=== PATIENT | male | born 1935 | race Caucasian/White ===

== ENCOUNTER 2017-09-29 07:42 | Emergency (ER) | payer MEDICARE, OTHER ==
[~2017-09-29] VITALS: Ht 180.3 cm; Wt 85.3 kg
[~2017-09-29 07:42] MED LIST: WARF1TAB2 PO
[2017-09-29 08:32] LABS: BASOPHILS % (AUTO) 0.6 % (0.0-2.0); EOSINOPHILS # (AUTO) 0.4 K/uL (0.0-0.7); EOSINOPHILS % (AUTO) 4.2 % (0.0-7.0); HEMOGLOBIN 11.3 g/dL (12.5-16.3); LYMPHOCYTES # (AUTO) 1.2 K/uL (20.0-40.0); LYMPHOCYTES % (AUTO) 13.1 % (20.5-51.5); MEAN CORPUSCULAR HEMOGLOBIN 33.3 uug (23.8-33.4); MEAN CORPUSCULAR HGB CONC 33 g/dL (32.5-36.3); MEAN CORPUSCULAR VOLUME 100.3 fL (73.0-96.2); MONOCYTES # (AUTO) 0.7 K/uL (2.0-10.0); MONOCYTES % (AUTO) 7.6 % (0.0-11.0); NEUTROPHILS # (AUTO) 6.6 K/uL (1.8-8.9); NEUTROPHILS % (AUTO) 74.5 % (38.5-71.5); PLATELET COUNT (AUTO) 211 K/uL (152-348); RED BLOOD CELL COUNT(AUTO) 3.39 MIL/uL (4.06-5.63); WHITE BLOOD COUNT (AUTO) 8.8 K/uL (3.6-10.2)
--- NOTE | 2017-09-29 08:40 | NUR ---
LEFT KNEE SKIN TEAR DRESSED WITH ADAPTIC NON ADHESSIVE FOLLOWED BY [employer] AND KERLIX.
[2017-09-29 08:50] VITALS: BP 103/89
--- NOTE | 2017-09-29 08:50 | NUR ---
Patient discharged to home in stable conditon. Written and verbal after care instructions given. Patient verbalizes understanding of instructions.PT WALKS WITH STEADY GAIT ACCOMPANIED BY .
== END 2017-09-29 08:52 | disposition home or self-care (01) ==
LOC: ER 07:42
DX: S80.212A Abrasion, left knee, initial encounter (principal); I10 Essential (primary) hypertension; I48.91 Unspecified atrial fibrillation; Z79.01 Long term (current) use of anticoagulants; W18.09XA Striking against other object with subsequent fall, initial encounter; Y93.01 Activity, walking, marching and hiking; Y92.89 Other specified places as the place of occurrence of the external cause; Y99.8 Other external cause status
CPT/HCPCS: 36415; 85025; 85730; 99284; A4663

== ENCOUNTER 2017-10-02 09:08 | Emergency (ER) | payer MEDICARE ==
[~2017-10-02] VITALS: Ht 180.3 cm; Wt 85.3 kg
--- NOTE | 2017-10-02 09:40 | NUR ---
Patient discharged to home in stable conditon. Written and verbal after care instructions given. Patient verbalizes understanding of instructions.PT WALKS IN STEADY GAIT. PT WITH .
[2017-10-02 09:41] VITALS: BP 109/71
== END 2017-10-02 09:45 | disposition home or self-care (01) ==
LOC: ER 09:08
DX: S81.012D Laceration without foreign body, left knee, subsequent encounter (principal); I10 Essential (primary) hypertension; I48.91 Unspecified atrial fibrillation; Z79.01 Long term (current) use of anticoagulants; X58.XXXD Exposure to other specified factors, subsequent encounter
CPT/HCPCS: A4663

== ENCOUNTER 2023-01-25 21:51 | Inpatient (IN) | payer MEDICARE ==
[~2023-01-25] VITALS: Ht 182.9 cm; Wt 77.1 kg
[2023-01-25] MEDS ORDERED: METO25TA6 PO (22:14)
[2023-01-25] MEDS ORDERED: FURO40TA5 PO (22:14)
[2023-01-25] MEDS ORDERED: DOCU100C36 PO (22:14)
[2023-01-25] MEDS ORDERED: MELA3CAP2 PO (22:14)
[2023-01-25] MEDS ORDERED: SEVE800T8 PO (22:14)
[2023-01-25] MEDS ORDERED: CHOL500062 PO (22:14)
[2023-01-25] MEDS ORDERED: ATOR40TA PO (22:14)
[2023-01-25] MEDS ORDERED: MEGE400O5 PO (22:14)
[2023-01-25] MEDS ORDERED: DILT180T11 PO (22:14)
[2023-01-25] MEDS ORDERED: LEVO75TA PO (22:14)
[2023-01-25] MEDS ORDERED: FERR-56 PO (22:14)
[2023-01-25] MEDS ORDERED: SODI15OR6 PO (22:14)
[2023-01-25] MEDS ORDERED: FOLI0.8T2 PO (22:14)
[2023-01-25] MEDS ORDERED: TRAZ-182 PO (22:14)
[2023-01-25] MEDS ORDERED: DIGO125T PO (22:14)
[2023-01-25] MEDS ORDERED: DIPH50LI PO (22:14)
[2023-01-25] MEDS ORDERED: ASCO500C18 PO (22:14)
[2023-01-25] MEDS ORDERED: APIX2.5T PO (22:14)
[2023-01-25] MEDS ORDERED: FOLI1TAB94 PO (22:14)
[2023-01-25 22:21] LABS: HEMATOCRIT 23.9 % (36.7-47.1); MEAN CORPUSCULAR HEMOGLOBIN 33.4 uug (23.8-33.4); MEAN CORPUSCULAR VOLUME 100.9 fL (73.0-96.2); PLATELET COUNT (AUTO) 286 K/uL (152-348)
[2023-01-25 22:27] LABS: CARBON DIOXIDE 25 mmol/L (21-32); CHLORIDE 106 mmol/L (98-107); CREATININE 3.6 mg/dL (0.6-1.3); GLUCOSE 129 mg/dL (74-106)
[2023-01-25 22:29] LABS: UREA NITROGEN, BLOOD 83 mg/dL (7-18)
[2023-01-25 22:39] LABS: ALANINE AMINOTRANSFERASE 40 U/L (16-63); ALKALINE PHOSPHATASE 207 U/L (50-136); ASPARTATE AMINOTRANSFERASE 16 U/L (15-37); BILIRUBIN,DIRECT 0.2 mg/dL (0.0-0.2); BILIRUBIN,TOTAL 0.4 mg/dL (0.2-1.0); TOTAL PROTEIN, SERUM 7.1 g/dL (6.4-8.2)
[2023-01-25] MEDS ORDERED: METOPROLOL TARTRATE 5 MG/5 ML VIAL IVP ONE ×2 (22:45→23:20)
[2023-01-25 23:05] LABS: *BILIRUBIN,URIN NEGATIVE (NEGATIVE); *BLOOD, URINE 3+ (NEGATIVE); *CLARITY,URINE CLEAR (CLEAR); *COLOR,URINE YELLOW (YELLOW); *KETONES,URINE NEGATIVE (NEGATIVE); *UROBILINOGEN,URINE 0.2 E.U./dl (NORMAL); LEUKOCYTE ESTERASE ,URINE NEGATIVE (NEGATIVE); NITRITE, URINE NEGATIVE (NEGATIVE); PH,URINE 5.5 (5.0-8.0); UGLUCOSE NEGATIVE (NEGATIVE)
[2023-01-25] MEDS ORDERED: FUROSEMIDE 20 MG/2 ML VIAL IV ONE (23:45)
--- NOTE | 2023-01-25 23:45 | NUR ---
Caregiver at bedside. Patient is awake and in bed.
--- NOTE | 2023-01-26 00:07 | NUR ---
Called [facility] for panel call. Ronal Doran director of acquisitions.
[2023-01-26] MEDS ORDERED: HYDROCODONE/APAP 5-325MG TABLET PO PRN (00:30)
[2023-01-26] MEDS ORDERED: HOME MED MISCELLANEOUS XX SCH (00:30)
[2023-01-26] MEDS ORDERED: ONDANSETRON 4 MG/2 ML VIAL IV PRN (00:30)
[2023-01-26] MEDS ORDERED: REMEDY ESSENTIAL ZINC PASTE 113 GM TP PRN (00:30)
[2023-01-26] MEDS ORDERED: DILTIAZEM HCL CD 180 MG CAP.SR.24H PO ONE (00:30)
[2023-01-26] MEDS ORDERED: ACETAMINOPHEN 325 MG TABLET PO PRN (00:30)
[2023-01-26] MEDS ORDERED: MAGNESIUM HYDROXIDE 30 ML LIQUID UDC PO PRN (00:30)
[2023-01-26] MEDS ORDERED: MELATONIN 3 MG TABLET ONE (00:35)
[2023-01-26] MEDS: MELATONIN 3 MG TABLET PO SCH (00:46)
--- NOTE | 2023-01-26 01:00 | NUR ---
Called third floor and spoke to Lakesha Villagomez and gave report.
[2023-01-26 01:18] LABS: RBC,URINE 20-50 /HPF (0-3)
[2023-01-26 01:19] LABS: BACTERIA,URINE FEW /HPF (NONE SEEN); MUCUS,URINE FEW /LPF (0-FEW); SQUAMOUS EPITHELIAL CELL,UR NONE SEEN /HPF (NONE SEEN); WBC,URINE 0-3 /HPF (0-3)
--- NOTE | 2023-01-26 01:35 | NUR ---
Transferred patient to third floor. Lakesha ALLEN made aware of patient's arrival.
[2023-01-26 02:11] VITALS: BP 152/85
[2023-01-26] MEDS: MORPHINE SULFATE 2 MG/1 ML DISP.SYRIN IV PRN (02:22)
[2023-01-26 04:15] VITALS: BP 106/57
[2023-01-26] MEDS: PANTOPRAZOLE SODIUM 40 MG TABLET.DR PO SCH (06:24)
[2023-01-26] MEDS: LEVOTHYROXINE SODIUM 75 MCG TABLET PO SCH (06:24)
--- NOTE | 2023-01-26 07:30 | NUR ---
REPORT GIVEN TO ALEJANDRO STALLINGS
--- NOTE | 2023-01-26 07:30 | NUR ---
Received report from Lakesha Mendoza RN. Patient is awake and alert of disoriented. Patient is not listening to instructions not to pull on his IV and his phototypesetting equipment monitor or to stay in bed so he doesn't fall.
[2023-01-26 08:00] VITALS: BP 113/59
[2023-01-26] MEDS: SEVELAMER CARBONATE 800 MG TABLET PO SCH ×3 (08:55→17:31)
[2023-01-26] MEDS: FOLIC ACID 1 MG TABLET PO SCH (08:55)
[2023-01-26] MEDS: DOCUSATE SODIUM 100 MG CAPSULE PO SCH ×2 (08:56→17:29)
[2023-01-26] MEDS: FOLIC ACID/VITAMIN B COMP W-C TABLET PO SCH (08:57)
[2023-01-26] MEDS: APIXABAN 2.5 MG TABLET PO SCH ×2 (08:57→17:32)
[2023-01-26] MEDS: CHOLECALCIFEROL 1,000 UNIT TABLET PO SCH (08:57)
[2023-01-26] MEDS ORDERED: METOPROLOL TARTRATE 25 MG TABLET PO SCH (09:00)
[2023-01-26] MEDS ORDERED: DIGOXIN 125 MCG TABLET PO SCH ×2 (09:00→13:43)
[2023-01-26] MEDS: ASCORBIC ACID 500 MG TABLET PO SCH (09:17)
--- NOTE | 2023-01-26 09:30 | NUR ---
Dr Weinstein informed about pt being agitated and noncompliant and orders received.
[2023-01-26] MEDS: ALPRAZOLAM 0.5 MG TABLET PO SCH ×3 (10:26→21:04)
[2023-01-26 11:58] VITALS: BP 109/43
[2023-01-26 12:51] LABS: HEMATOCRIT 22.6 % (36.7-47.1); MEAN CORPUSCULAR HEMOGLOBIN 33.5 uug (23.8-33.4); MEAN CORPUSCULAR VOLUME 100.3 fL (73.0-96.2); PLATELET COUNT (AUTO) 253 K/uL (152-348)
[2023-01-26 13:04] LABS: CARBON DIOXIDE 27 mmol/L (21-32); CHLORIDE 106 mmol/L (98-107); CREATININE 3.5 mg/dL (0.6-1.3); GLUCOSE 99 mg/dL (74-106); UREA NITROGEN, BLOOD 73 mg/dL (7-18)
[2023-01-26 13:07] LABS: IRON, SERUM 95 ug/dL (50-175)
[2023-01-26 13:10] LABS: ALANINE AMINOTRANSFERASE 35 U/L (16-63); ALKALINE PHOSPHATASE 176 U/L (50-136); ASPARTATE AMINOTRANSFERASE 18 U/L (15-37); BILIRUBIN,TOTAL 0.5 mg/dL (0.2-1.0); MAGNESIUM 1.8 mg/dL (1.8-2.4); PHOSPHOROUS 3.9 mg/dL (2.5-4.9); TOTAL PROTEIN, SERUM 6.2 g/dL (6.4-8.2)
[2023-01-26 13:17] LABS: THYROID STIMULATING HORMONE 2.694 mIU/mL (0.358-3.740)
[2023-01-26 16:00] VITALS: BP 120/63
[2023-01-26] MEDS: TRAZODONE 50 MG TABLET PO SCH (17:29)
[2023-01-26 19:51] VITALS: BP 115/50
[2023-01-26] MEDS ORDERED: ATORVASTATIN 40 MG TABLET PO SCH (21:00)
[2023-01-26] MEDS: METOPROLOL TARTRATE 25 MG TABLET PO SCH (21:05)
[2023-01-27 04:11] VITALS: BP 112/59
[2023-01-27] MEDS: ALPRAZOLAM 0.5 MG TABLET PO SCH ×3 (06:11→21:53)
[2023-01-27] MEDS: PANTOPRAZOLE SODIUM 40 MG TABLET.DR PO SCH (06:11)
[2023-01-27] MEDS: LEVOTHYROXINE SODIUM 75 MCG TABLET PO SCH (06:11)
--- NOTE | 2023-01-27 07:30 | NUR ---
REPORT GIVEN TO ALEJANDRO HOMER
[2023-01-27 07:43] LABS: HEMATOCRIT 23.7 % (36.7-47.1); MEAN CORPUSCULAR VOLUME 101.1 fL (73.0-96.2); PLATELET COUNT (AUTO) 263 K/uL (152-348)
--- NOTE | 2023-01-27 08:00 | NUR ---
Pt awake alert x 2. Pt is in no acute distress. Caregiver at bedside. Noted bruising on left knee. Call light is within reach. Tele hr 120's afib - Dr mcmullen cardiology on board awaiting for further orders.
[2023-01-27 08:01] LABS: ALANINE AMINOTRANSFERASE 36 U/L (16-63); ALKALINE PHOSPHATASE 172 U/L (50-136); ASPARTATE AMINOTRANSFERASE 21 U/L (15-37); BILIRUBIN,TOTAL 0.5 mg/dL (0.2-1.0); CARBON DIOXIDE 27 mmol/L (21-32); CHLORIDE 108 mmol/L (98-107); CHOLESTEROL 78 mg/dL (<200); GLUCOSE 101 mg/dL (74-106); HDL CHOLESTEROL 48 mg/dL (40-60); MAGNESIUM 1.8 mg/dL (1.8-2.4); PHOSPHOROUS 3.7 mg/dL (2.5-4.9); POTASSIUM 5.3 mmol/L (3.5-5.1); TOTAL PROTEIN, SERUM 6.3 g/dL (6.4-8.2); TRIGLYCERIDES < 15 MG/DL (30-150); UREA NITROGEN, BLOOD 68 mg/dL (7-18)
[2023-01-27] MEDS: FOLIC ACID 1 MG TABLET PO SCH (08:40)
[2023-01-27] MEDS: ASCORBIC ACID 500 MG TABLET PO SCH (08:40)
[2023-01-27] MEDS: DOCUSATE SODIUM 100 MG CAPSULE PO SCH ×2 (08:40→17:13)
[2023-01-27] MEDS: APIXABAN 2.5 MG TABLET PO SCH ×2 (08:40→17:15)
[2023-01-27] MEDS: CHOLECALCIFEROL 1,000 UNIT TABLET PO SCH (08:41)
[2023-01-27] MEDS: FOLIC ACID/VITAMIN B COMP W-C TABLET PO SCH (08:41)
[2023-01-27] MEDS: SEVELAMER CARBONATE 800 MG TABLET PO SCH ×3 (08:41→17:13)
[2023-01-27] MEDS: MEGESTROL ACETATE 400 MG/10 ML LIQUID UDC PO SCH (08:43)
[2023-01-27] MEDS: METOPROLOL TARTRATE 25 MG TABLET PO SCH ×2 (08:48→20:36)
[2023-01-27] MEDS ORDERED: SODIUM POLYSTYRENE SULFONATE 15 G/60 ML LIQUID UDC PO ONE (10:30)
[2023-01-27] MEDS: DILTIAZEM HCL CD 180 MG CAP.SR.24H PO SCH (10:45)
[2023-01-27] MEDS: IV NS 1000 ML 1,000 ML IV PRN ×2 (11:00→18:28)
[2023-01-27 12:00] VITALS: BP 124/64
[2023-01-27] MEDS: HALOPERIDOL LACTATE 5 MG/1 ML VIAL IM PRN (15:35)
--- NOTE | 2023-01-27 15:35 | NUR ---
Prior intervention to deescalate pt non effective. Distraction, offer urinal, Pt continues to kick, punch, pull out o2. Notified dr paul new order given for haldol as xanax po routine not effective to help decrease pt agitation.
[2023-01-27 16:00] VITALS: BP 123/66
[2023-01-27] MEDS: TRAZODONE 50 MG TABLET PO SCH (17:13)
[2023-01-27 18:12] LABS: CARBON DIOXIDE 26 mmol/L (21-32); CHLORIDE 107 mmol/L (98-107); CREATININE 3.1 mg/dL (0.6-1.3); GLUCOSE 175 mg/dL (74-106); POTASSIUM 4.6 mmol/L (3.5-5.1); UREA NITROGEN, BLOOD 63 mg/dL (7-18)
--- NOTE | 2023-01-27 18:30 | NUR ---
Pt agitated throughout shift, spitting, kicking, punching nurses and caregiver. Prior psych Meds non effective. New order additional Haldol one time. Notified Dr Russell of consult per dr paul. Unable to continue IV as ordered as pt will pull out his iv. Call light is within reach.
[2023-01-27] MEDS ORDERED: HALOPERIDOL LACTATE 5 MG/1 ML VIAL IM ONE (19:00)
[2023-01-27 19:50] LABS: *BILIRUBIN,URIN NEGATIVE (NEGATIVE); *CLARITY,URINE CLEAR (CLEAR); *COLOR,URINE LIGHT YELLOW (YELLOW); *KETONES,URINE NEGATIVE (NEGATIVE); *UROBILINOGEN,URINE 0.2 E.U./dl (NORMAL); LEUKOCYTE ESTERASE ,URINE NEGATIVE (NEGATIVE); NITRITE, URINE NEGATIVE (NEGATIVE); UGLUCOSE NEGATIVE (NEGATIVE)
[2023-01-27 19:56] VITALS: BP 129/67
[2023-01-27 20:06] LABS: *BLOOD, URINE TRACE (NEGATIVE)
[2023-01-27] MEDS: MELATONIN 3 MG TABLET PO SCH (20:37)
[2023-01-27 21:14] LABS: *CREATININE,URINE < 13.0 mg/dL (30-125); *URINE TOTAL PROTEIN RANDOM < 6.0 mg/dL (<150/24HR)
[2023-01-27 23:20] LABS: BACTERIA,URINE NONE SEEN /HPF (NONE SEEN); SQUAMOUS EPITHELIAL CELL,UR NONE SEEN /HPF (NONE SEEN); WBC,URINE 0-3 /HPF (0-3)
--- NOTE | 2023-01-28 | NUR ---
RECD PT IN BED,RESTING QUIETLY, NO ACUTE DISTRESS NOTED.STILL CONFUSED,NOT RESTLESS.DIAPER IN PLACE.PERIPHERAL IV ON LEFTUPPER ARM,IV INFUSING WELL,W/O ANY PROBLEMS.
[2023-01-28] MEDS: HALOPERIDOL LACTATE 5 MG/1 ML VIAL IM PRN (03:39)
[2023-01-28] MEDS: MORPHINE SULFATE 2 MG/1 ML DISP.SYRIN IV PRN (03:40)
[2023-01-28 04:00] VITALS: BP 124/61
[2023-01-28] MEDS: IV NS 1000 ML 1,000 ML IV PRN ×2 (05:00→22:02)
[2023-01-28] MEDS: ALPRAZOLAM 0.5 MG TABLET PO SCH ×3 (05:14→22:10)
--- NOTE | 2023-01-28 06:00 | NUR ---
Pt received confused ambulating in the hallway bed alarm in place. Pt got up multiple times with unsteady gait assisted back in bed but pt got up again, states he wanted to urinate but only urinates some drops, assisted back in bed; pending psychiatrist Dr Russell with come to see pt in AM. Pt constantly removes the iv x3 restarted HL, Pt got aggressive during the night and spit and kick staff when assisted back in bed, bed alarm always in place. Pt resting since 0500 after medicated with morphine due to lt knee pain. Pt assisted with PO fluids. HL in place pt resting comfortably, endorse care to incoming nurse
[2023-01-28] MEDS: LEVOTHYROXINE SODIUM 75 MCG TABLET PO SCH (06:26)
[2023-01-28] MEDS: PANTOPRAZOLE SODIUM 40 MG TABLET.DR PO SCH (06:26)
[2023-01-28 07:15] LABS: HEMATOCRIT 23.2 % (36.7-47.1); MEAN CORPUSCULAR HEMOGLOBIN 33.5 uug (23.8-33.4); PLATELET COUNT (AUTO) 265 K/uL (152-348)
[2023-01-28 07:48] LABS: ALANINE AMINOTRANSFERASE 33 U/L (16-63); ALKALINE PHOSPHATASE 172 U/L (50-136); ASPARTATE AMINOTRANSFERASE 28 U/L (15-37); BILIRUBIN,TOTAL 0.6 mg/dL (0.2-1.0); CARBON DIOXIDE 25 mmol/L (21-32); CHLORIDE 108 mmol/L (98-107); CREATININE 2.8 mg/dL (0.6-1.3); GLUCOSE 106 mg/dL (74-106); MAGNESIUM 1.9 mg/dL (1.8-2.4); PHOSPHOROUS 3.2 mg/dL (2.5-4.9); POTASSIUM 4.8 mmol/L (3.5-5.1); TOTAL PROTEIN, SERUM 6.4 g/dL (6.4-8.2); UREA NITROGEN, BLOOD 61 mg/dL (7-18)
--- NOTE | 2023-01-28 08:00 | NUR ---
Dr Russell here to evaluate patient. Notified of pts behavior by pt's private sitter at bedside. Notified Dr Russell of behaviors from yesterday. New orders received and carried out. Pt sleeping currently. HOB elevated to prevent aspiration. Repositioned for comfort. New IV on left upper arm intact and IV infusing as ordered. Pt is in no acute distress. Pt on R/a with 97% o2 sat.
[2023-01-28 08:05] LABS: CREATINE KINASE, TOTAL 323 U/L (39-308)
[2023-01-28] MEDS: ASCORBIC ACID 500 MG TABLET PO SCH (08:51)
[2023-01-28] MEDS: FOLIC ACID 1 MG TABLET PO SCH (08:51)
[2023-01-28] MEDS: CHOLECALCIFEROL 1,000 UNIT TABLET PO SCH (08:52)
[2023-01-28] MEDS: DOCUSATE SODIUM 100 MG CAPSULE PO SCH ×2 (08:52→16:47)
[2023-01-28] MEDS: APIXABAN 2.5 MG TABLET PO SCH ×2 (08:53→16:46)
[2023-01-28] MEDS: SEVELAMER CARBONATE 800 MG TABLET PO SCH ×3 (08:57→17:06)
[2023-01-28] MEDS: FOLIC ACID/VITAMIN B COMP W-C TABLET PO SCH (08:57)
[2023-01-28] MEDS: DILTIAZEM HCL CD 180 MG CAP.SR.24H PO SCH (08:59)
[2023-01-28] MEDS: METOPROLOL TARTRATE 25 MG TABLET PO SCH ×2 (09:00→21:09)
[2023-01-28] MEDS: MEGESTROL ACETATE 400 MG/10 ML LIQUID UDC PO SCH (09:00)
[2023-01-28] MEDS: QUETIAPINE FUMARATE 25 MG TABLET PO SCH ×2 (09:38→16:45)
[2023-01-28 11:35] VITALS: BP 122/65
--- NOTE | 2023-01-28 13:00 | NUR ---
Discussed with wound care nurse that pt just got started on new medication regimen by psych. Noted left LE's bruising. buttocks clear pt able to ambulate and change position independently with FALL precautions.
--- NOTE | 2023-01-28 13:04 | NUR ---
WOUND CARE CONSULT: PT RESTING AT THIS TIME AND WAS PREVIOUSLY AGITATED PER NURSING STAFF. CURRENT ESPERANZA SCORE IS 19. WILL SEE PRN.
[2023-01-28 15:44] VITALS: BP 111/51
[2023-01-28 20:00] VITALS: BP 128/61
[2023-01-28] MEDS ORDERED: QUETIAPINE FUMARATE 25 MG TABLET PO SCH (21:00)
--- NOTE | 2023-01-28 22:00 | NUR ---
DUE MEDS GIVEN,ABLE TO SWALLOW PILLS.VITAL SIGNS W/I NORMAL LIMITS, KEPT DRY AND CLEAN. REPOSITIONED FOR COMFORT.
--- NOTE | 2023-01-29 02:12 | NUR ---
MONITORED CLOSELY, SLEPT AT LONG INTERVALS.
[2023-01-29 04:00] VITALS: BP 125/65
[2023-01-29] MEDS: PANTOPRAZOLE SODIUM 40 MG TABLET.DR PO SCH (06:26)
[2023-01-29] MEDS: ALPRAZOLAM 0.5 MG TABLET PO SCH ×3 (06:26→14:48)
[2023-01-29] MEDS: LEVOTHYROXINE SODIUM 75 MCG TABLET PO SCH (06:26)
[2023-01-29 07:02] LABS: HEMATOCRIT 23.2 % (36.7-47.1); MEAN CORPUSCULAR HEMOGLOBIN 33.4 uug (23.8-33.4); MEAN CORPUSCULAR VOLUME 101.1 fL (73.0-96.2); PLATELET COUNT (AUTO) 276 K/uL (152-348)
[2023-01-29 07:14] LABS: CARBON DIOXIDE 27 mmol/L (21-32); CHLORIDE 109 mmol/L (98-107); CREATININE 2.7 mg/dL (0.6-1.3); GLUCOSE 84 mg/dL (74-106); MAGNESIUM 1.8 mg/dL (1.8-2.4); PHOSPHOROUS 3.5 mg/dL (2.5-4.9); UREA NITROGEN, BLOOD 52 mg/dL (7-18)
--- NOTE | 2023-01-29 07:36 | NUR ---
ENDORSED TO AM NURSE,LAB DRAWS DONE ,TOLERATED PROCEDURE WELL.
[2023-01-29] MEDS: MEGESTROL ACETATE 400 MG/10 ML LIQUID UDC PO SCH (08:56)
[2023-01-29] MEDS: SEVELAMER CARBONATE 800 MG TABLET PO SCH ×2 (08:56→12:22)
[2023-01-29] MEDS: CHOLECALCIFEROL 1,000 UNIT TABLET PO SCH (08:57)
[2023-01-29] MEDS: APIXABAN 2.5 MG TABLET PO SCH (08:57)
[2023-01-29] MEDS: FOLIC ACID/VITAMIN B COMP W-C TABLET PO SCH (08:57)
[2023-01-29] MEDS: DOCUSATE SODIUM 100 MG CAPSULE PO SCH (08:57)
[2023-01-29] MEDS: FOLIC ACID 1 MG TABLET PO SCH (08:57)
[2023-01-29] MEDS: QUETIAPINE FUMARATE 25 MG TABLET PO SCH (08:58)
[2023-01-29] MEDS: ASCORBIC ACID 500 MG TABLET PO SCH (08:58)
[2023-01-29] MEDS ORDERED: ESCITALOPRAM OXALATE 10 MG TABLET PO SCH (09:00)
[2023-01-29] MEDS: DILTIAZEM HCL CD 180 MG CAP.SR.24H PO SCH (09:11)
[2023-01-29] MEDS: METOPROLOL TARTRATE 25 MG TABLET PO SCH (09:12)
[2023-01-29 11:53] VITALS: BP 138/66
[2023-01-29] MEDS ORDERED: METO25TA6 PO (12:06)
--- NOTE | 2023-01-29 14:00 | NUR ---
Upon assessment, pt's bilateral heels are normal in color and blanchable. Bilateral pedal pulses felt with very mild nonpitting edema on the top of the left foot.
--- NOTE | 2023-01-29 15:30 | NUR ---
Pt left unit via gurney with 3 architectural draftsman from [facility]. Pt stable, no s/s of distress noted, VSS, Temp was 97.6, no SOB at this time. All needs met, all belongings with pt.
[2023-01-30 05:07] LABS: A/G RATIO 1.2 (0.7-1.7); ALBUMIN 3.1 g/dL (2.9-4.4); ALPHA-1-GLOBULIN 0.3 g/dL (0.0-0.4); ALPHA-2-GLOBULIN 0.9 g/dL (0.4-1.0); BETA GLOBULIN 0.8 g/dL (0.7-1.3); GAMMA GLOBULIN 0.7 g/dL (0.4-1.8); GLOBULIN, TOTAL 2.6 g/dL (2.2-3.9); M-SPIKE Not Observed g/dL (Not Observed)
== END 2023-01-29 15:30 | disposition home or self-care (01) | DRG 308 ==
LOC: ER 21:51 → TELE3 01-26 01:17 → MEDSURG3 01-27 11:05
PROVIDERS: ADMIT Nurse Practitioner Acute Care; ATTEND Internal Medicine
DX: I48.20 Chronic atrial fibrillation, unspecified (principal); N17.0 Acute kidney failure with tubular necrosis; D68.59 Other primary thrombophilia; I13.0 Hypertensive heart and chronic kidney disease with heart failure and stage 1 through stage 4 chronic kidney disease, or unspecified chronic kidney disease; I50.32 Chronic diastolic (congestive) heart failure; E44.0 Moderate protein-calorie malnutrition; F03.92 Unspecified dementia, unspecified severity, with psychotic disturbance; F05 Delirium due to known physiological condition; K92.2 Gastrointestinal hemorrhage, unspecified; E03.9 Hypothyroidism, unspecified; N18.9 Chronic kidney disease, unspecified; E66.9 Obesity, unspecified; E87.5 Hyperkalemia; D64.9 Anemia, unspecified; D75.89 Other specified diseases of blood and blood-forming organs; Z85.51 Personal history of malignant neoplasm of bladder; Z68.23 Body mass index [BMI] 23.0-23.9, adult; Z79.890 Hormone replacement therapy; Z79.01 Long term (current) use of anticoagulants; Z74.09 Other reduced mobility; Z79.899 Other long term (current) drug therapy; Z20.822 Contact with and (suspected) exposure to COVID-19
CPT/HCPCS: 36415; 70450; 71045; 76770; 83550; 83605; 83735; 83970; 84100; 84155; 84165; 84300; 84443; 84484; 85025; 87040; 93005; 93307; G0378; J1630; J1940; J2270; J3490; J7040; J8999